=== PATIENT | female | born 1985 | race Hispanic/Latino ===

== ENCOUNTER 2018-11-23 00:38 | Emergency (ER) | payer OTHER ==
[~2018-11-23] VITALS: Ht 180.3 cm; Wt 81.4 kg
[2018-11-23 00:38] VITALS: BP 150/67
[2018-11-23] MEDS ORDERED: LEXA1TAB PO (00:46)
[2018-11-23] MEDS ORDERED: WELLTAB40 PO (00:46)
[2018-11-23] MEDS ORDERED: CENTCHW4 PO (00:46)
[2018-11-23] MEDS ORDERED: ONDANSETRON 4 MG ORAL DISINTEGRATING TAB (Q0162 PER 1MG) PO ONE (01:00)
[2018-11-23 01:43] LABS: INFLUENZA A AMPLIFICATION NEGATIVE (NEGATIVE); INFLUENZA B AMPLIFICATION NEGATIVE (NEGATIVE)
[2018-11-23] MEDS ORDERED: ONDA4TAB6 PO (01:47)
== END 2018-11-23 01:54 | disposition home or self-care (01) ==
LOC: M ED 00:38
DX: K52.9 Noninfective gastroenteritis and colitis, unspecified (principal); Z79.899 Other long term (current) drug therapy; Z91.89 Other specified personal risk factors, not elsewhere classified
CPT/HCPCS: 87502; 99282; Q0162

== ENCOUNTER 2019-10-02 11:01 | Day surgery (SDC) | payer OTHER ==
[~2019-10-02] VITALS: Ht 180.3 cm; Wt 84.7 kg
[~2019-10-02 11:01] MED LIST: ACET-683 PO; CENTCHW4 PO; CETI-36 PO; DULO1CAP5 PO; LEXA1TAB PO; LIDOCAINE 1% MDV 20ML VIAL SQ PRN; LR 1,000 ML IV ONE; MAXA10TA14 PO; MELA1TAB9 PO; MELA3TAB41 PO; ONDA4TAB6 PO; VALA1TAB2 PO; WELLTAB40 PO
[2019-10-02 11:42] LABS: HEMATOCRIT 39.3 % (36.0-47.0); HEMOGLOBIN 12.4 g/dl (12.0-15.5); MEAN CORPUSCULAR HEMOGLOBIN 28.3 pg (27.0-33.0); MEAN CORPUSCULAR HGB CONC 31.6 g/dl (32.0-36.5); MEAN CORPUSCULAR VOLUME 89.7 fl (80.0-96.0); PLATELET COUNT, AUTOMATED 249 10^3/uL (150-450); RED BLOOD COUNT 4.38 10^6/uL (4.00-5.40); WHITE BLOOD COUNT 7.1 10^3/uL (4.0-10.0)
[2019-10-02 12:15] LABS: HCG, SERUM QUALITATIVE NEGATIVE (NEGATIVE)
[2019-10-02] MEDS ORDERED: LIDOCAINE W/EPINEPHRINE 1% 20ML VIAL As Ordered ONE (13:29)
[2019-10-02] MEDS ORDERED: IODINE STRONG SOLN 15 ML BTL As Ordered ONE (13:30)
[2019-10-02] MEDS ORDERED: LIDOCAINE 2% INJ 100 MG/5 ML SDV (FOR ANES.) As Ordered ONE (14:08)
[2019-10-02] MEDS ORDERED: dexameTHASONE 4 MG/ML 1ML VIAL (J1100) As Ordered ONE (14:08)
[2019-10-02] MEDS ORDERED: ACETAMINOPHEN 1000MG 100ML IV BTL (OFIRMEV) (J0131 PER 10MG) As Ordered ONE (14:08)
[2019-10-02] MEDS ORDERED: MIDAZOLAM INJ 2 MG/2 ML VIAL (J2250) As Ordered ONE (14:08)
[2019-10-02] MEDS ORDERED: ONDANSETRON 4MG/2ML VIAL (J2405) As Ordered ONE (14:08)
[2019-10-02] MEDS ORDERED: PROPOFOL 200 MG/20 ML VIAL As Ordered ONE (14:08)
[2019-10-02] MEDS ORDERED: KETOROLAC 60 MG/2 ML VIAL (J1885) As Ordered ONE (14:08)
[2019-10-02] MEDS ORDERED: fentaNYL 250 MCG/5 ML INJECTION (J3010) As Ordered ONE (14:08)
[2019-10-02] MEDS ORDERED: ePHEDrine SULFATE 25 MG/5 ML(5MG/ML) SYRINGE As Ordered ONE (14:21)
[2019-10-02] MEDS ORDERED: PERCOCET 5MG/325MG TAB As Ordered ONE (14:50)
[2019-10-02] MEDS ORDERED: PERCOCET 5MG/325MG TAB PO PRN (15:00)
[2019-10-02] MEDS ORDERED: LR 1,000 ML IV SCH (15:00)
[2019-10-02] MEDS ORDERED: KETOROLAC 30 MG/ML VIAL (J1885) IV PRN (15:00)
[2019-10-02] MEDS ORDERED: fentaNYL 100 MCG/2 ML INJECTION (J3010) IV PRN (15:00)
[2019-10-02] MEDS ORDERED: ONDANSETRON 4MG/2ML VIAL (J2405) IV PRN (15:00)
[2019-10-02 17:00] VITALS: BP 116/61
--- NOTE | 2019-10-03 17:42 | RO ---
DATE OF PROCEDURE: 10/02/2019 PREPROCEDURE DIAGNOSIS: High grade epithelial lesion of the cervix on colposcopic biopsy. POSTPROCEDURE DIAGNOSIS: High grade epithelial lesion of the cervix on colposcopic biopsy. OPERATIVE PROCEDURE: Loop electrosurgical excision procedure. SURGEON: Justice Stone DO BIOTECHNOLOGIST: None. ANESTHESIA: Laryngeal mask airway (LMA). FLUIDS: 700 mL lactated Ringers. URINE OUTPUT: 30 mL via straight catheter. ESTIMATED BLOOD LOSS: 5 mL COMPLICATIONS: None. ANTIBIOTICS: None indicated. DETAILED PROCEDURE DESCRIPTION: The risks, benefits, indications and alternatives of the procedure were reviewed with the patient and informed consent was obtained. The patient was taken to the operating room where LMA anesthesia was obtained without difficulty. The patient was then placed in the lithotomy position using Antonio stirrups. The patient was then prepped and draped in the usual sterile fashion and the bladder was drained using an in and out catheter. A sterile Graves speculum was then placed into the vagina and the cervix was visualized. IUD strings were seen protruding from the cervical os. Lugol's solution was then copiously applied to the cervix which highlighted lesions at the 12-o'clock and 6-o'clock positions of the cervix. A paracervical lock was then performed using approximately 10 mL of lidocaine with epinephrine. The loop electrosurgical excision procedure (LEEP) device was then set to 60/60 blend and activated. The looped electrocautery wire was then passed across the 6-o'clock portion of the external cervical os in two passes. Production of an adequate tissue sample was obtained and then sent to pathology for review. Attention was then turned to the patient's 12-o'clock position of the cervix. The looped electrocautery wire was then passed across the 12-o'clock position of the external cervical os in a single pass. Production of an adequate tissue sample was collected and sent to pathology for review. Thus two tissue samples were collected. Superficial electrocoagulation of the cervical stroma was then performed. Excellent hemostasis was achieved. Monsel's solution was then copiously applied to the cervix. The cervix remained hemostatic. All instruments were then removed from the patient's vagina. At the completion of the case, the sponge, instrument and needle counts were correct times two. The patient tolerated the procedure well and was discharged to home in stable condition. [facility]
== END 2019-10-02 17:05 | disposition home or self-care (01) ==
LOC: M SDC 11:01
PROVIDERS: ATTEND Obstetrics & Gynecology
DX: R87.613 High grade squamous intraepithelial lesion on cytologic smear of cervix (HGSIL) (principal); K58.1 Irritable bowel syndrome with constipation; M25.50 Pain in unspecified joint; F41.9 Anxiety disorder, unspecified; F32.9 Major depressive disorder, single episode, unspecified; G43.909 Migraine, unspecified, not intractable, without status migrainosus; F43.10 Post-traumatic stress disorder, unspecified; R06.83 Snoring; G47.33 Obstructive sleep apnea (adult) (pediatric); Z91.048 Other nonmedicinal substance allergy status; Z79.899 Other long term (current) drug therapy; Z86.32 Personal history of gestational diabetes; Z97.5 Presence of (intrauterine) contraceptive device